=== PATIENT | female | born 1960 | race Caucasian/White ===

== ENCOUNTER 2018-04-27 10:01 | Emergency (ER) | payer OTHER ==
[~2018-04-27] VITALS: Ht 154.9 cm; Wt 71.7 kg
[2018-04-27 10:07] VITALS: BP 158/74
--- NOTE | 2018-04-27 10:21 | ED HEAD/FACIAL INJ COMPLAINT ---
History of Present Illness General Chief Complaint: Laceration Procedure Stated Complaint: LAC ABOVE LEFT EYE Source: patient Exam Limitations: no limitations Vital Signs & Intake/Output Vital Signs & Intake/Output Vital Signs Date Time Temp Pulse Resp B/P B/P Pulse O2 O2 Flow FiO2 Mean Ox Delivery Rate 04/27 1007 97.8 61 15 158/74 97 Room Air Room Air Allergies Coded Allergies: No Known Allergies (04/27/18) Triage Note: PT TO ED FOR C/C OF LAC TO L EYELID S/P GETTING HIT BY CAR DOOR. UNKNOWN LAST TETANUS SHOT. NO ACTIVE BLEEDING IN TRIAGE. Triage Nurses Notes Reviewed? yes Severity: mild Method of Injury: direct blow Loss of Consciousness: no loss of consciousness HPI: Pt is a 57 y/o F presenting with a laceration to the left eyelid. Pt states she was opening her car door and accidentally struck herself in the eye. Bleeding is now controlled. Pt denies any pain around the orbit, pain with EOM, change in vision, denies taking anticoagulants. Denies any loss of consciousness. Denies any vomiting. Denies any severe headache. (Tariq Vee) Past History Travel History Traveled to [place] past 21 day No Medical History Any Pertinent Medical History? see below for history Neurological: NONE EENT: NONE Cardiovascular: hypertension Respiratory: NONE Gastrointestinal: NONE Hepatic: NONE Renal: NONE Musculoskeletal: NONE Psychiatric: NONE Endocrine: NONE Blood Disorders: NONE Cancer(s): NONE PROTOTYPER/Reproductive: NONE Surgical History Surgical History: non-contributory Psychosocial History What is your primary language Italian Tobacco Use: Never used ETOH Use: denies use Illicit Drug Use: denies illicit drug use Family History Hx Contributory? No (Tariq Vee) Review of Systems Review of Systems Constitutional: Reports: no symptoms. EENTM: Denies: see HPI. Respiratory: Reports: no symptoms. Cardiovascular: Reports: no symptoms. GI: Reports: no symptoms. Genitourinary: Reports: no symptoms. Musculoskeletal: Reports: no symptoms. Skin: Reports: no symptoms. Neurological/Psychological: Denies: see HPI. Hematologic/Endocrine: Reports: no symptoms. Immunologic/Allergic: Reports: no symptoms. All Other Systems: Reviewed and Negative (Tariq Vee) Physical Exam Physical Exam General Appearance: well developed/nourished, no apparent distress Head: normal appearance, 1 cm laceration to the left eyelid. Bleeding is controlled. No surrounding edema or ecchymosis. No palpapable abnormalities Eyes: Bilateral: PERRL, EOMI. Ears, Nose, Throat: normal ENT inspection Neck: normal inspection Respiratory: no respiratory distress Cranial Nerves: normal hearing, normal speech, PERRL Coordination/Gait: normal gait Skin: normal color, warm/dry, 1 cm laceration to left eyelid. Edges well approximated on exam (Tariq Vee) Progress Differential Diagnosis: facial fracture, globe injury, orbit fracture, LACERATION Plan of Care: 04/27/2018 10:32:26 AM Laceration is superficial and well approximated with no active bleeding. Does not require sutures. Steri-Strip placed. Patient discharged. To close proximity with eye to use Dermabond. (Tariq Vee) Departure Departure Disposition: HOME OR SELF CARE Condition: Stable Clinical Impression Primary Impression: Head injury Secondary Impressions: Eyelid laceration Referrals: Brittny Coto MD (PCP/Family) Additional Instructions: Let Steri-Strips fall off on its own. Return if any severe headache, vomiting, inability to move your left eye or pain with movement of the left eye. Please go over all results of today's visit with your primary care doctor. Contact your primary care doctor to let them know you were here in the emergency room. There may be nonspecific findings which may not be related to your visit today here in the emergency room but may require further evaluation and chronic monitoring by your primary care doctor. If you had a laceration today the chance of foreign body always remains. You should follow-up with your primary care doctor for recheck in 3-5 days for a wound check. If you had an x-ray done there is a chance that a fracture could have been missed on initial read and you should follow-up with your primary care doctor for repeat x-rays if symptoms persist. If your blood pressure was elevated here in the emergency room please have rechecked by [facility] primary care doctor within the next 48. If you were prescribed a narcotic here in the emergency room or any type of controlled substances you're not allowed to drive while taking this medication or operate any type of heavy machinery. Narcotics can make you feel lightheaded dizziness nausea and can cause constipation. You may need to grape picker a stool softener. Thank you for choosing [facility] emergency room. Please return to the emergency room immediately if you have any other concerns worsening of symptoms. Departure Forms: Customer Survey General Discharge Information (Tariq Vee) PA/MANAGER RISK MANAGEMENT Co-Sign Statement Statement: ED Attending supervision documentation- [] I saw and evaluated the patient. I have also reviewed all the pertinent lab results and diagnostic results. I agree with the findings and the plan of care as documented in the PA's/MANAGER RISK MANAGEMENT's documentation. [X] I have reviewed the ED Record and agree with the PA's/MANAGER RISK MANAGEMENT's documentation. [] Additions or exceptions (if any) to the PAs/MANAGER RISK MANAGEMENT's note and plan are summarized below: [] (Derek Mckeon DO) Procedures Laceration/Wound Repair Progress: Left eyelid, irrigated with saline, Steri-Strips placed, (Tariq Vee)
== END 2018-04-27 10:22 ==
LOC: ERH 10:01
DX: S09.90XA Unspecified injury of head, initial encounter (principal); S01.112A Laceration without foreign body of left eyelid and periocular area, initial encounter; W22.8XXA Striking against or struck by other objects, initial encounter
CPT/HCPCS: 99282